=== PATIENT | female | born 1995 | race Caucasian/White ===

== ENCOUNTER 2017-05-25 20:29 | Emergency (ER) | payer OTHER ==
[2017-05-25 23:05] LABS: BASO # 0.1 10^3/uL (0.0-0.2); BASO % 0.2 % (0.0-1.0); EOS # 0.1 10^3/uL (0.0-0.50); EOS % 0.2 % (0.0-3.0); HEMATOCRIT 41.8 % (36.0-47.0); HEMOGLOBIN 14.2 g/dl (12.0-16.0); IMMATURE GRANULOCYTE % 0.5 % (0-3.0); LYMPH # 2.2 10^3/uL (1.5-6.5); LYMPH % 9.8 % (24.0-44.0); MEAN CORPUSCULAR HEMOGLOBIN 30.7 pg (27.0-33.0); MEAN CORPUSCULAR VOLUME 90.5 fl (80.0-96.0); MONO # 1.2 10^3/uL (0.0-0.8); MONO % 5.5 % (0.0-5.0); NEUTROPHILS # 18.7 10^3/uL (1.8-7.7); NEUTROPHILS % 83.8 % (36.0-66.0); PLATELET COUNT, AUTOMATED 326 10^3/uL (150-450); RED BLOOD COUNT 4.62 10^6/uL (4.00-5.40); RED CELL DISTRIBUTION WIDTH 13.6 % (11.5-14.5); WHITE BLOOD COUNT 22.4 10^3/uL (4.0-10.0)
[2017-05-25 23:10] LABS: KETONE, URINE AUTO RFX TRACE mg/dL (NEGATIVE); LEUKOCYTE ESTERASE UR AUTO RFX 2+ (NEGATIVE); MUCUS, URINE RFX LARGE (NEGATIVE); NITRITE, URINE AUTO RFX NEGATIVE (NEGATIVE); RBC, URINE AUTO RFX 9 /HPF (0-3); SPECIFIC GRAVITY UR AUTO RFX 1.028 (1.002-1.035); SQUAM EPITHELIAL CELL UR AURFX 3 /HPF (0-6); WBC, URINE AUTO RFX 67 /HPF (0-3)
[2017-05-25] MEDS ORDERED: ISOVUE-370 76% 100ML VIAL (Q9967) As Ordered (23:22)
[2017-05-25 23:25] LABS: ALBUMIN 3.9 GM/DL (3.2-5.2); ALBUMIN/GLOBULIN RATIO 0.89 (1.00-1.93); ALKALINE PHOSPHATASE 80 U/L (45-117); ALT/SGPT 17 U/L (12-78); ANION GAP 9 MEQ/L (8-16); AST/SGOT 10 U/L (7-37); BILIRUBIN,DIRECT 0.2 MG/DL (0.0-0.2); BILIRUBIN,TOTAL 0.6 MG/DL (0.2-1.0); BLOOD UREA NITROGEN 17 MG/DL (7-18); CALCIUM LEVEL 9.3 MG/DL (8.5-10.1); CARBON DIOXIDE LEVEL 26 MEQ/L (21-32); CHLORIDE LEVEL 101 MEQ/L (98-107); CREATININE FOR GFR 0.86 MG/DL (0.55-1.30); GLUCOSE, FASTING 91 MG/DL (70-100); LIPASE 47 U/L (73-393); SODIUM LEVEL 136 MEQ/L (136-145); TOTAL PROTEIN 8.3 GM/DL (6.4-8.2)
[2017-05-26 00:06] LABS: INFLUENZA A AMPLIFICATION NEGATIVE (NEGATIVE); INFLUENZA B AMPLIFICATION NEGATIVE (NEGATIVE)
== END 2017-05-26 00:59 | disposition home or self-care (01) ==
LOC: M ED 05-26 00:59
DX: N39.0 Urinary tract infection, site not specified (principal); A09 Infectious gastroenteritis and colitis, unspecified
CPT/HCPCS: Q9967

== ENCOUNTER 2017-09-23 06:45 | Day surgery (SDC) | payer OTHER ==
[2017-09-23 07:14] LABS: HEMATOCRIT 42.4 % (36.0-47.0); HEMOGLOBIN 14.4 g/dl (12.0-15.5); MEAN CORPUSCULAR HEMOGLOBIN 30.4 pg (27.0-33.0); MEAN CORPUSCULAR VOLUME 89.6 fl (80.0-96.0); PLATELET COUNT, AUTOMATED 261 10^3/uL (150-450); RED BLOOD COUNT 4.73 10^6/uL (4.00-5.40); RED CELL DISTRIBUTION WIDTH 12.9 % (11.5-14.5); WHITE BLOOD COUNT 6.7 10^3/uL (4.0-10.0)
[2017-09-23] MEDS: LR 1,000 ML IV (07:30)
[2017-09-23 07:34] LABS: CONTROL LINE HCG INT CTR LINE PRESENT; HCG, SERUM QUALITATIVE NEGATIVE (NEGATIVE)
[2017-09-23] MEDS ORDERED: ONDANSETRON 4MG/2ML VIAL (J2405) As Ordered (07:59)
[2017-09-23] MEDS ORDERED: PROPOFOL 200 MG/20 ML VIAL As Ordered (07:59)
[2017-09-23] MEDS ORDERED: MIDAZOLAM INJ 2 MG/2 ML VIAL (J2250) As Ordered (07:59)
[2017-09-23] MEDS ORDERED: KETOROLAC 60 MG/2 ML VIAL (J1885) As Ordered (07:59)
[2017-09-23] MEDS ORDERED: dexameTHASONE 4 MG/ML 1ML VIAL (J1100) As Ordered (07:59)
[2017-09-23] MEDS ORDERED: LIDOCAINE 2% INJ 100 MG/5 ML SDV (FOR ANES.) As Ordered (07:59)
[2017-09-23] MEDS ORDERED: fentaNYL 100 MCG/2 ML INJECTION (J3010) As Ordered (08:00)
[2017-09-23] MEDS: SILVER NITRATE APPLICATOR As Ordered (08:18)
[2017-09-23] MEDS: LIDOCAINE 1% SDV INJ 30 ML VIAL As Ordered (08:18)
[2017-09-23] MEDS: LIDOCAINE W/EPINEPHRINE 1% 20ML VIAL As Ordered (08:56)
== END 2017-09-23 10:00 | disposition home or self-care (01) ==
LOC: M SDC 06:45
DX: N84.2 Polyp of vagina (principal); N89.1 Moderate vaginal dysplasia
CPT/HCPCS: 57135

== ENCOUNTER 2018-10-17 23:26 | Emergency (ER) | payer OTHER ==
[~2018-10-17] VITALS: Ht 172.7 cm; Wt 74.1 kg
[~2018-10-17 23:26] MED LIST: ACET1TAB55; CIPR-249 PO; FLAG500T PO; IBUP200T45; ZOFR4TAB14 PO; [UNRECOGNIZED DRUG - CODE] PB
[2018-10-17 23:27] VITALS: BP 128/82
[2018-10-17] MEDS ORDERED: CELE1CAP7 (23:30)
[2018-10-18] MEDS ORDERED: predniSONE 20 MG TAB PO ONE (00:15)
[2018-10-18] MEDS ORDERED: METHOCARBAMOL 750 MG TAB PO ONE (00:15)
[2018-10-18] MEDS ORDERED: ROBA500T PO (00:21)
[2018-10-18] MEDS ORDERED: PRED20TA PO (00:21)
== END 2018-10-18 00:30 | disposition home or self-care (01) ==
LOC: M ED 23:26
DX: M54.5 Low back pain (principal); M54.16 Radiculopathy, lumbar region; Z79.3 Long term (current) use of hormonal contraceptives; Z79.899 Other long term (current) drug therapy

== ENCOUNTER 2019-01-17 18:41 | Emergency (ER) | payer OTHER ==
[~2019-01-17] VITALS: Ht 172.7 cm; Wt 65.9 kg
[2019-01-17 18:41] VITALS: BP 121/74
[~2019-01-17 18:41] MED LIST changes: +CELE1CAP7; +PRED20TA PO; +ROBA500T PO
[2019-01-17] MEDS ORDERED: LIDOCAINE 2% MDV 20 ML VIAL SC ONE (19:15)
[2019-01-17] MEDS ORDERED: ADACEL/BOOSTRIX VACCINE (DIPHTH/PERTUSS/ACELL/TETANUS)0.5ML SYR (90715) IM ONE (19:30)
== END 2019-01-17 20:13 | disposition home or self-care (01) ==
LOC: M ED 18:41
DX: S61.012A Laceration without foreign body of left thumb without damage to nail, initial encounter (principal); W25.XXXA Contact with sharp glass, initial encounter; Y92.018 Other place in single-family (private) house as the place of occurrence of the external cause; Z79.3 Long term (current) use of hormonal contraceptives

== ENCOUNTER 2019-01-25 10:18 | Emergency (ER) | payer OTHER ==
[~2019-01-25] VITALS: Ht 172.7 cm; Wt 63.6 kg
[2019-01-25 10:19] VITALS: BP 117/59
== END 2019-01-25 13:35 | disposition home or self-care (01) ==
LOC: M ED 10:18
DX: Z48.02 Encounter for removal of sutures (principal); Z79.3 Long term (current) use of hormonal contraceptives